=== PATIENT | female | born 1990 | race American Indian/Alaskan Native ===

== ENCOUNTER 2017-02-25 03:28 | Inpatient (IN) | payer OTHER ==
[2017-02-25] MEDS ORDERED: LACTATED RINGERS 500 ML IV ONE (04:19)
[2017-02-25 05:24] LABS: Bacteria,Urine 1+ /HPF (Negative); Bilirubin,Urine NEG (Negative); Blood,Urine SM (Negative); Ketones,Urine NEG (Negative); Leukocyte Esterase,Urine LG (Negative); Mucus,Urine FEW /HPF; Nitrite,Urine NEG (Negative); Protein,Urine <15 mg/dL mg/dL (Negative); Urobilinogen,Urine < 2.0 mg/dL (<2.0)
[2017-02-25 06:57] LABS: Urine Drugs of Abuse Note Disclamer
[2017-02-25] MEDS ORDERED: PITOCin/NS 20 UNIT/1000ML DRIP 20 UNITS/1,000 ML BAG IV SCH (07:00)
--- NOTE | 2017-02-25 07:09 | History and Physical Report ---
History of Present Illness Date of examination: 02/25/17 Chief complaint: Cramping x ~ 1 wk Vaginal bleeding History of present illness: 26-year-old at 21+ 4 weeks (SOILA 07/04/16) presents with above complaints and issues, she is a [facility] patient. Essential history is patient with oral diagnosis of gestational diabetes, I suspect she has pre-gestational diabetes presents with cramping since Friday and acute onset of vaginal bleeding today in triage. course has been complicated by diabetes as mentioned being managed by [facility], she is currently on insulin. She has an oral hx of prior SAB at ~ 12 wks, no D&C. Ultrasound obtained today in triage shows an at 21+ 2 weeks and estimated weight of ~ 400 mg. She is in breech presentation with fundal placenta, heart tones present. On exam, parts palpated in the vagina and mild vaginal bleeding noted. 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 denies: smoking, alcohol abuse, prescription drug abuse, IV drug use - Obstetrical History Expected Date of Delivery: 07/04/17 Actual Gestation: 21 Week(s) 4 Day(s) : 2 Para: 0 Medications and Allergies Allergies Allergy/AdvReac Type Severity Reaction Status Date / Time No Known Allergies Allergy Verified 05/30/16 19:21 Home Medications Medication Instructions Recorded Confirmed Last Taken Type Insulin NPH Human Isophane 100 unit SQ QAMDIAB 02/25/17 02/25/17 02/24/17 History [HumuLIN N] Insulin Regular, Human [HumuLIN R] 1,000 unit SQ BIDBRS 02/25/17 02/25/17 History Vit-Fe Fumar-FA [ 1 tab PO QDAY 02/25/17 02/25/17 02/24/17 History Vitamin] Active Meds: Active Medications Ephedrine Sulfate (Ephedrine Sulfate) 10 mg IV Q2M PRN PRN Reason: Hypotension Stop: 02/25/17 07:00 Fentanyl (Sublimaze) 100 mcg IV Q2H PRN PRN Reason: Labor Pain Lactated Ringer's (Lactated Ringers) 1,000 mls @ 125 mls/hr IV DIRECT KYLE Oxytocin/Sodium Chloride (Pitocin/Ns 20 Unit/1000ml Drip) 20 units in 1,000 mls @ 125 mls/hr IV DIRECT KYLE Oxytocin/Sodium Chloride (Pitocin/Ns 30 Unit/500ml) 30 units in 500 mls @ 1 mls /hr IV TITR KYLE; 1 MILLIUNITS/MIN PRN Reason: Protocol Lidocaine (Xylocaine 2%) 20 ml INFILTRATI ONCE ONE Stop: 02/25/17 06:56 Mineral Oil (Mineral Oil) 30 ml PO QHS PRN PRN Reason: Constipation Ondansetron HCl (Zofran) 4 mg IV Q8H PRN PRN Reason: Nausea And Vomiting Terbutaline Sulfate (Brethine) 0.25 mg SUB-Q ONCE PRN PRN Reason: Hyperstimulation/Hypertonicity Stop: 02/25/17 06:56 Terbutaline Sulfate (Brethine) 0.25 mg IVP ONCE PRN PRN Reason: Hyperstimulation/Hypertonicity Stop: 02/25/17 06:56 Review of Systems Constitutional: no fever, no chills, no sweats, no weakness, no chronic headaches, no chronic pain Eyes: no blurred vision, no photophobia Cardiovascular: no chest pain, no orthopnea, no syncope, no lightheadedness, no shortness of breath, no dyspnea on exertion, no paroxysmal nocturnal dyspnea, no high blood pressure, no decreased exercise tolerance Respiratory: no hemoptysis, no shortness of breath, no dyspnea on exertion Gastrointestinal: abdominal pain, no nausea, no vomiting, no heartburn, no indigestion Genitourinary: vaginal bleeding (mild bleeding), contractions, no vaginal discharge, no leakage of fluid - Vital Signs Vital signs: Vital Signs Temp Resp 98.6 F 18 02/25/17 03:58 02/25/17 03:58 Temp Pulse Resp BP Pulse Ox 98.6 F 96 H 18 132/73 97 02/25/17 03:58 02/25/17 04:13 02/25/17 03:58 02/25/17 04:03 02/25/17 04:13 - Physical Exam Cardiovascular: Regular rate, Normal S1, Normal S2 Lungs: Positive: Clear to auscultation, Normal air movement Abdomen: Positive: normal appearance, soft, normal bowel sounds. Negative: distention, tenderness, guarding, rigidity Genitourinary (Female): Positive: normal external genitalia, other ( parts palpated in the vagina) Uterus: Positive: enlarged. Negative: tender Adnexa: both: normal Extremities: Positive: normal Results Result Diagrams: 02/25/17 06:05 Abnormal lab results 02/25/17 Range/Units 04:00 Urine WBC (Auto) 16.0 H (0.0-6.0) /HPF All other labs normal. Assessment and Plan A: 26-year-old at 21+4 weeks with labor - heart tones present Issues -Pregestational DM on Insulin ([id number]) -POC is ~ 94 (this AM) - < 500 g -Breech and fundal placenta P: -Admit -Obtain routine labs -NPO now -Hold her scheduled insulin for now and Start SSI -Expectant mgt - Patient Problems (1) 21 weeks gestation of Current Visit: Yes Status: Acute (2) labor in second trimester Current Visit: Yes Status: Acute Qualifiers: labor delivery status: P Fetus number: single or unspecified fetus
[2017-02-25 07:11] LABS: Hematocrit 37.9 % (30.3-42.9); Hemoglobin 12.8 gm/dl (10.1-14.3); Mean Corpuscular HGB Conc 34 % (30-34); Mean Corpuscular Hemoglobin 28 pg (28-32); Mean Corpuscular Volume 81 fl (79-97); Platelet Count 284 K/mm3 (140-440); Red Blood Count 4.66 M/mm3 (3.65-5.03); Red Cell Distribution Width 14.2 % (13.2-15.2); White Blood Count 15.2 K/mm3 (4.5-11.0)
[2017-02-25] MEDS ORDERED: D50W (25GM) Syringe IV PRN (08:00)
[2017-02-25] MEDS ORDERED: MINERAL OIL PO PRN (08:00)
[2017-02-25] MEDS ORDERED: BRETHINE SUB-Q PRN (08:00)
[2017-02-25] MEDS ORDERED: LACTATED RINGERS 1,000 ML IV SCH (08:00)
[2017-02-25] MEDS ORDERED: ZOFRAN IV PRN ×2 (08:00→15:53)
[2017-02-25] MEDS ORDERED: ePHEDrine SULFATE IV PRN (08:00)
--- NOTE | 2017-02-25 08:07 | Ultrasound Report ---
OB ULTRASOUND History: Vaginal bleeding during . Comparison: None at this facility. Technique: Transabdominal ultrasound with Doppler interrogation. Gestation: Single Position: Breech Amniotic Fluid: Decreased TONI = 1.2 cm Placenta: Fundal Placental Grade: 0 Heart Rate: 210 BPM Cervical length: The cervix appears to be open with parts presenting. cm (Normal > 3 cm) BPD: 5.0 cm = 21 w 0 d HC: 18.6 cm = 20 w 6 d AC: 15.6 cm = 20 w 5 d FL: 3.7 cm = 21 w 5 d HC/AC Ratio: 1.19 Cephalic Index: 80.1 Estimated Weight: 402 grams. 24th percentile. LMP: 09/27/16 Clinical age = 21 w 4 d EDC: 07/04/17 US Gest. Age = 21 w 1 d EDC: 07/07/17
[2017-02-25] MEDS ORDERED: XYLOCAINE 2% INFILTRATI ONE (08:30)
[2017-02-25] MEDS ORDERED: BRETHINE IVP PRN (09:00)
--- NOTE | 2017-02-25 09:16 | Event Note ---
Date: 02/25/17 S: Presented to Labor and delivery this am with cramping, started bleeding in Triage O: parts in vagina on exam A: labor at 21 weeks P: Discussed expectant management vs intervention with pitocin for delivery Agrees to pitocin augmentation
[2017-02-25] MEDS: PITOCin/NS 30 UNIT/500ML 30 UNITS/500 ML BAG IV SCH ×4 (10:21→12:12)
[2017-02-25] MEDS: SUBLIMAZE IV PRN ×2 (11:03→14:15)
[2017-02-25] MEDS ORDERED: METHERGINE IM ONE (13:06)
[2017-02-25] MEDS ORDERED: CYTOTEC ONE (13:06)
[2017-02-25] MEDS ORDERED: PHENERGAN PO PRN ×2 (13:57→15:53)
[2017-02-25] MEDS ORDERED: TYLENOL PO PRN ×2 (13:57→15:53)
[2017-02-25] MEDS ORDERED: MOTRIN PO SCH (14:00)
[2017-02-25] MEDS ORDERED: SODIUM CHLORIDE FLUSH SYRINGE 10 ML IV NR ×2 (14:00→16:00)
[2017-02-25] MEDS ORDERED: ANCEF/STERILE WATER 2 GM/20 ML 2 GM/20 ML SYRINGE IV SCH (14:00)
--- NOTE | 2017-02-25 14:03 | Procedure Note ---
OB Delivery Note - Delivery Date of Delivery: 02/25/17 Surgeon: SARA GUTIERREZ Estimated blood loss: 300cc - Vaginal Delivery presentation: breech Intrapartum events: labor-<37 weeks, other(please specify) ( oligohydramnious) Delivery augmentation: pitocin Delivery monitor: none Route of delivery: Delivery placenta: adherent Delivery cord: 3 umbilical vessels Episiotomy: none Delivery laceration: none Anesthesia: intravenous Delivery comments: of a non viable female (418 gms) @ 1308 on 02/25/17, 2 at 2 and 5 min. Baby given to mom to hold. FHR ceased at 1340. Placenta adherent and patient prepared for D and C. Dr. Coronel aware. - Infant A at 1 minute: 2 ( at 1340) at 5 minutes: 2 Gender: Female ( at)
[2017-02-25] MEDS ORDERED: ceFAZolin 2 GM in NACL 0.9% 100 ML IV ONE (14:38)
[2017-02-25] MEDS ORDERED: XYLOCAINE MPF 2% ONE (14:39)
[2017-02-25] MEDS ORDERED: DILAUDID ONE (14:39)
[2017-02-25] MEDS ORDERED: DIPRIVAN 10 MG/ML IV ONE (14:39)
[2017-02-25] MEDS ORDERED: ANCEF/STERILE WATER 2 GM/20 ML 2 GM/20 ML SYRINGE IV ONE (14:46)
[2017-02-25] MEDS ORDERED: WATER FOR IRRIG STERILE IR ONE (14:55)
[2017-02-25] MEDS ORDERED: ZOFRAN ONE (15:37)
[2017-02-25] MEDS ORDERED: PERCOCET 5/325 PO PRN (15:53)
[2017-02-25 17:51] LABS: Hematocrit 30.5 % (30.3-42.9); Hemoglobin 9.9 gm/dl (10.1-14.3)
[2017-02-25] MEDS: MOTRIN PO SCH (21:59)
--- NOTE | 2017-02-25 22:51 | Operative Report ---
PREOPERATIVE DIAGNOSES: 1. Status post vaginal delivery of nonviable fetus. 2. Retained products of conception. POSTOPERATIVE DIAGNOSES: 1. Status post vaginal delivery of nonviable fetus. 2. Retained products of conception. PROCEDURE: Suction, dilatation and curettage. SURGEON: Dr. Coronel. WEATHERIZATION TECHNICIAN: None. ANESTHESIA: General. COMPLICATIONS: None. ESTIMATED BLOOD LOSS: 200 mL intraoperatively. IV fluids, Ringer's lactate 1 liter. Urine output adequate by straight catheter before the procedure. DESCRIPTION OF PROCEDURE: The risks, benefits and alternatives of the procedure were discussed in detail with the patient, which included but not limited to the risk of infection, hemorrhage requiring blood transfusion, uterine perforation. The patient expressed understanding. Her questions were answered and she gave the informed consent. The patient was taken to the operating room with an IV fluid infusing Ringer's Lactate. In the operating room, she was placed in the dorsal supine position and given general anesthesia. Then, she was placed on the stirrups in a dorsal lithotomy position. The perineum, vagina, and cervix were washed and she was prepared and draped in the usual sterile fashion. Examination under anesthesia revealed dilated cervix with some products of conception at the os. The uterus was about 18-20 weeks size. Adnexa are nonpalpable. A weighted speculum was placed on the posterior vaginal wall. The anterior lip of the cervix was grasped with a single tooth tenaculum. Sponge forceps was used to grasp the parts of the products of conceptions that were sitting at the cervix and a 14 mm suction curette was connected to the suction device and it was gently introduced into the uterine cavity up to the fundus under ultrasound guidance and a large amount of products of conceptions were suctioned out. Then a sharp curettage was performed and the large piece of the placenta was removed and under ultrasound guidance, the procedure was completed and the endometrial lining became very thin and there was no further bleeding at the end of the procedure. The uterus was firm. Methergine IM was given. The counts of laps, needles, sponges, and instruments were correct x 2. The patient tolerated the procedure well. She was awakened from the anesthesia and taken to the recovery room in stable condition. JOB# [id number] KV/NTS
[2017-02-26 00:52] LABS: Hematocrit 27.2 % (30.3-42.9)
[2017-02-26] MEDS: MOTRIN PO SCH (06:05)
--- NOTE | 2017-02-26 09:04 | Discharge Summary ---
Providers - Providers Date of Admission: 02/25/17 03:29 S/P vaginal delivery of nonviable fetus at 21 weeks. Retained placenta, S/P D&C. Date of discharge: 02/26/17 Attending physician: MARICARMEN MEJIA MD This patient is a 26 year old who presented to L&D on feb 25 with labor and rupture of membranes. Counseling was provided that the fetus was nonviable and she was admitted for expectant management. She delivered via a nonviable baby. The placenta was retained and she was bleeding heavily. She had lost about 600 cc of blood in the subsequent 30 minutes after delivery. The decision to perform a D&C was made. She gave her informed consent and was taken to the OR. D&C was done and the placenta was removed with suction and curette. H&H was 9.0/27.2 two hours after the procedure. She was observed overnight. This AM, she denies any complaint. Vitals: T98.9F, HR 94, RR18, BP 101/56. Exam: unremarkable. Pelvic exam: deferred. A: 26 year old S/P of a nonviable baby after PROM. Retained placenta, S/P suction D&C. POD#1. She is hemodynamically stable. Plan: will d/c home today. Pt to F/U in the office in 2 weeks. Primary care physician: GHAZALA AMOR MD Hospitalization Disposition: DC-30 STILL A PATIENT Plan - Provider Discharge Summary Additional instructions: [] Smoking cessation referral if applicable(refer to patient education folder for contact #) [] Refer to [facility] Booklet Call your doctor immediately for: * Fever > 100.5 * Heavy vaginal bleeding ( >1 pad per hour) * Severe persistent headache * Shortness of breath * Reddened, hot, painful area to leg or breast * Drainage or odor from incision. * Keep incision clean and dry at all times and follow doctor's instructions regarding bathing/showering - Follow up plan Follow up: GHAZALA MAKI MD [Primary Care Provider] - 7 Days
[2017-02-26 09:36] VITALS: BP 99/47
[2017-02-26] MEDS ORDERED: Fluarix Quad 2017-2018(36 MOS+) IM ONE (12:00)
== END 2017-02-26 12:10 | disposition home or self-care (01) | DRG 767 ==
LOC: TRG 03:28 → LD 03:29 → TRG 03:30 → OB 18:07
PROVIDERS: ADMIT Obstetrics & Gynecology; ATTEND Obstetrics & Gynecology
PROC: 10D17ZZ Extraction of Products of Conception, Retained, Via Natural or Artificial Opening (ICD-10-PCS; principal; 2017-02-25)
PROC: 10E0XZZ Delivery of Products of Conception, External Approach (ICD-10-PCS; 2017-02-25)
PROC: 3E0234Z Introduction of Serum, Toxoid and Vaccine into Muscle, Percutaneous Approach (ICD-10-PCS; 2017-02-26)
DX: O60.12X0 Preterm labor second trimester with preterm delivery second trimester, not applicable or unspecified (principal); O41.02X0 Oligohydramnios, second trimester, not applicable or unspecified; Z37.1 Single stillbirth; O32.1XX0 Maternal care for breech presentation, not applicable or unspecified; O24.414 Gestational diabetes mellitus in pregnancy, insulin controlled; O76 Abnormality in fetal heart rate and rhythm complicating labor and delivery; O43.892 Other placental disorders, second trimester; Z3A.21 21 weeks gestation of pregnancy; Z23 Encounter for immunization; Z79.4 Long term (current) use of insulin
CPT/HCPCS: 36415; 76816; 80307; 81001; 82962; 85014; 85018; 85027; 86850; 86900; 86901; 88305; J0690; J1170; J2210; J2405; J2590; J2704; J3010; J7120

== ENCOUNTER 2019-08-02 07:34 | Outpatient (CLI) | payer BC ==
[2019-08-02 10:56] VITALS: BP 119/70
== END 2019-08-02 12:21 | disposition home or self-care (01) ==
LOC: LAB 07:34 → TRG 10:17 → LAB 12:21
PROVIDERS: ATTEND Obstetrics & Gynecology
DX: O26.893 Other specified pregnancy related conditions, third trimester (principal); O24.419 Gestational diabetes mellitus in pregnancy, unspecified control; Z67.21 Type B blood, Rh negative; Z3A.28 28 weeks gestation of pregnancy
CPT/HCPCS: 86850; 86900; 86901; 96372; J2790

== ENCOUNTER 2019-10-14 08:58 | Inpatient (IN) | payer BC ==
[2019-10-14] MEDS ORDERED: FAMOTIDINE 20 MG/2 ML INJ IV ONE (09:16)
[2019-10-14] MEDS ORDERED: METOCLOPRAMIDE 10 MG/2 ML INJ IV ONE (09:16)
[2019-10-14] MEDS ORDERED: BICITRA ORAL LIQD 30ML PO NR (09:16)
--- NOTE | 2019-10-14 09:38 | History and Physical Report ---
History of Present Illness Date of examination: 10/14/19 Date of admission: 10/14/19 08:58 Chief complaint: IUP at 39+0/7 weeks IDDM Suspect CPD:remote from delivery For elective primary c/section History of present illness: IUP at 39+0/7 weeks, suspected CPD remote from delivery here for elective primary delivery Past History Past Medical History: diabetes Past Surgical History: no surgical history Family/Genetic History: none Social history: no significant social history - Obstetrical History : 3 Medications and Allergies Allergies Allergy/AdvReac Type Severity Reaction Status Date / Time No Known Allergies Allergy Verified 05/30/16 19:21 Home Medications Medication Instructions Recorded Confirmed Last Taken Type Insulin NPH Human Isophane 100 unit SQ QAMDIAB 02/25/17 02/25/17 02/24/17 History [HumuLIN N] Insulin Regular, Human [HumuLIN R] 1,000 unit SQ BIDBRS 02/25/17 02/25/17 History Vit-Fe Fumar-FA [ 1 tab PO QDAY 02/25/17 02/25/17 02/24/17 History Vitamin] Active Meds: Active Medications Citric Acid/Sodium Citrate (Bicitra) 30 ml PO ONCE ONE Stop: 10/14/19 09:17 Famotidine (Pepcid) 20 mg IV ONCE ONE Stop: 10/14/19 09:17 Oxytocin/Sodium Chloride (Pitocin/Ns 20 Unit/1000ml Drip) 20 units in 1,000 mls @ 0 mls/hr IV TITR KYLE Lactated Ringer's (Lactated Ringers) 1,000 mls @ 2,250 mls/hr IV PREOP KYLE Stop: 10/15/19 10:27 Cefazolin Sodium (Ancef/Sterile Water 2 Gm/20 Ml) 2 gm in 20 mls @ 80 mls/hr IV PREOP NR; Protocol Metoclopramide HCl (Reglan) 10 mg IV ONCE ONE Stop: 10/14/19 09:17 - Physical Exam Cardiovascular: Regular rate Lungs: Positive: Clear to auscultation ( ) Abdomen: Positive: normal appearance, soft Extremities: Positive: normal Deep Tendon Reflex Grade: Normal +2 - Obstetrical FHR: category 1 Cervical Dilatation: 0 (prominent pelvic outlet/ischial spines<10cm) Cervical Effacement Percentage: 50 station: -4 Results Result Diagrams: 10/14/19 09:41 All other labs normal. Assessment and Plan Patient with IDDM, 39+0/7 weeks remote from delivery, suspect CPD Patient has elected to have a primary section informed consent obtained NPO to OR for procedure CStevo Balir MD
[2019-10-14] MEDS ORDERED: ceFAZolin/Water 2 GM/20 ML 2 GM/20 ML SYRINGE IV NR (10:00)
[2019-10-14] MEDS ORDERED: OXYTOCIN 20 UNIT/1000ML DRIP 20 UNITS/1,000 ML BAG IV SCH ×2 (10:00→14:00)
[2019-10-14 10:16] LABS: Basophils % (Auto) 0.3 % (0.0-1.8); Eosinophils # (Auto) 0.1 K/mm3 (0.0-0.4); Eosinophils % (Auto) 1.5 % (0.0-4.3); Hematocrit 39.6 % (30.3-42.9); Hemoglobin 13.2 gm/dl (10.1-14.3); Lymphocytes # (Auto) 1.3 K/mm3 (1.2-5.4); Mean Corpuscular HGB Conc 33 % (30-34); Mean Corpuscular Volume 84 fl (79-97); Monocytes # (Auto) 0.4 K/mm3 (0.0-0.8); Monocytes % (Auto) 7.1 % (0.0-7.3); Platelet Count 260 K/mm3 (140-440); Red Blood Count 4.71 M/mm3 (3.65-5.03); Red Cell Distribution Width 15.1 % (13.2-15.2)
[2019-10-14] MEDS: LACTATED RINGERS 1,000 ML IV SCH ×3 (10:21→18:02)
--- NOTE | 2019-10-14 11:43 | Anesthesia Consultation ---
Anesthesia Consult and Med Hx Date of service: 10/14/19 - Airway Anesthetic Teeth Evaluation: Good ROM Head & Neck: Adequate Mental/Hyoid Distance: Adequate Mallampati Class: Class II Intubation Access Assessment: Probably Good - Pulmonary Exam CTA: Yes - Cardiac Exam Cardiac Exam: RRR - Pre-Operative Health Status ASA Pre-Surgery Classification: ASA3 Proposed Anesthetic Plan: Spinal - Pulmonary Hx Asthma: No COPD: No Hx Pneumonia: No - Cardiovascular System Hx Hypertension: No - Central Nervous System Hx Seizures: No Hx Psychiatric Problems: No - Endocrine Hx Renal Disease: No Hx End Stage Renal Disease: No Hx Non-Insulin Dependent Diabetes: Yes Hx Hypothyroidism: No Hx Hyperthyroidism: No - Hematic Hx Anemia: No Hx Sickle Cell Disease: No - Other Systems Hx Alcohol Use: No Hx Obesity: Yes
--- NOTE | 2019-10-14 11:44 | Anesthesia Day of Surgery ---
Anesthesia Day of Surgery - Day of Surgery Patient Examined: Yes Patient H&P Reviewed: Yes Patient is NPO: Yes
[2019-10-14] MEDS ORDERED: SODIUM CHLORIDE 0.9% IRR 1,500 ML BOTTLE IR ONE (12:16)
[2019-10-14] MEDS ORDERED: WATER FOR IRRIG STERILE 1,500 ML BOTTLE IR ONE (12:16)
[2019-10-14] MEDS ORDERED: DEXMEDETOMIDINE 200 MCG/2 ML VIAL IV ONE (12:21)
[2019-10-14] MEDS ORDERED: SODIUM CHLORIDE 0.9% 100 ML ONE (12:21)
[2019-10-14] MEDS ORDERED: KETOROLAC 30 MG/1 ML INJ ONE (12:21)
[2019-10-14] MEDS ORDERED: LIDOCAINE 2%/EPINEPHRINE 1:200,000 VIAL (20 ML) INFILTRATI ONE (12:21)
[2019-10-14] MEDS ORDERED: dexAMETHasone 20 MG/5 ML VIAL ONE (12:21)
[2019-10-14] MEDS ORDERED: SODIUM BICARB 8.4% 50 MEQ/50 ML VIAL IV ONE (12:21)
[2019-10-14] MEDS ORDERED: BUPIVACAINE/PF (0.5%) 5 MG/1 ML 30 ML VIAL INFILTRATI ONE (12:21)
[2019-10-14] MEDS ORDERED: OXYTOCIN 10 UNIT/1 ML INJ ONE (12:21)
--- NOTE | 2019-10-14 13:13 | Procedure Note ---
OB Delivery Note - Delivery Date of Delivery: 10/14/19 Surgeon: TONYA BETHEA Estimated blood loss: other (900ml) - Section Preop diagnosis: other (IUP at 39+0/7 weeks, cephaloplvic disproportion, IDDM) Postop diagnosis: same section procedure: primary low transverse Disposition: PACU Complications: none Narrative: Preoperative diagnosis: IUP at 39+0/7 week, suspected cephalopelvic disproportion, IDDM remote from delivery Postoperative diagnosis: same Procedure: primary low transverse section via pfannenstiel incision Surgeon : Dr Tonya Bethea Assist: scrub Anesthesia: spinal Complications: none Drains: samayoa to gravity EBL 900ml IV fluids: 500ml Urine output: 200ml Findings:normal uterus, tubes and ovaries bilaterally. Viable male,weight 3800gms, 8,9. Procedure: informed consent taken in OB triage with family present. All questions and concerns addressed. R/B/C reviewed. She was taken to the OR where excellent spinal anesthesia was given. She was placed in the dorsal supine position with a leftward tilt. She was prepped and draped in a sterile fashion. A time out was verified. An Cait clamp was used to assure adequate anesthesia. A Pfannenstiel skin incision was made, taken down through the underlying fascia sharply and extended laterally with curved Sal scissors. The superior and inferior aspect of the fascial incision was grasped with Stacy clamps and the rectus muscles dissected off sharply. The abdomen was entered sharply in the midline and extended laterally and inferiorly sharply with good visualization of the underlying structures. The vesicouterine peritoneum was grasped with [place]ican forceps and incised sharply with Metzenbaum scissors and extended laterally sharply. The uterine incision was made sharply with a scalpel, taken down to the amnion and extended inferiorly and superiorly bluntly. The bladder blade removed. Baby delivered atraumatically in cephalic presentation, no nuchal cord. Spontaneous cry at delivery.The cord was clamped and cut and baby handed to waiting NICU staff. An intact placenta with three vessel cord delivered manually. The uterus cleared of all clots and debris. The uterus was exteriorized and the uterine incision closed with 3 layers of 0-Vicryl. The abdomen was irrigated with warm normal saline and the uterus placed back in the abdomen. A second look at the uterine incision assured excellent hemostasis. The peritoneum closed with 3-0 vicryl. The rectus muscles approximated with 3- 0 vicryl with good hemostasis. The fascia closed with 0-Vicryl in the usual fashion, and the underlying structures closed with interrupted suture of O- Vicryl. The skin closed with monocryl and a pressure dressing applied. Mom and baby stable to . Patient hemodynamically stable in PACU. EBL 900ml Agapito LLOYD - A at 1 minute: 8 at 5 minutes: 9
[2019-10-14] MEDS ORDERED: ONDANSETRON 4 MG/2 ML INJ IV PRN (13:26)
[2019-10-14] MEDS ORDERED: LANOLIN/ZINC/DIMETHICONE (LANSINOH) 7 GM TP PRN (13:30)
[2019-10-14] MEDS ORDERED: WITCH HAZEL/ GLYCERIN PAD TP PRN (13:30)
[2019-10-14] MEDS ORDERED: NALOXONE 0.4 MG/1 ML INJ IV PRN (13:30)
[2019-10-14] MEDS ORDERED: MORPHINE 4 MG/1 ML INJ IV PRN (14:00)
[2019-10-14] MEDS ORDERED: MORPHINE 2 MG/1 ML INJ IV PRN (14:00)
--- NOTE | 2019-10-14 17:49 | Event Note ---
Date: 10/14/19 Patient with IDDM. I have decreased her daily insulin and metformin dose by 50% as is the standard of care for PP IDDM. She is to be discharge to home with the following insulin; NPH 13units QHS, Metformin 500mg BID. Mercedes Blair MD
[2019-10-14] MEDS: IBUPROFEN 800 MG TAB PO PRN (21:01)
[2019-10-14] MEDS ORDERED: DEXTROSE 50% IN WATER (25GM) 50 ML SYRINGE IV PRN (21:48)
[2019-10-14] MEDS: INSULIN REGULAR, HUMAN 100 UNITS/1 ML SUB-Q SCH (22:00)
[2019-10-14] MEDS ORDERED: MAGNESIUM HYDROXIDE (MOM) ORAL LIQD UDC PO PRN (22:00)
[2019-10-14] MEDS: INSULIN NPH, HUMAN 100 UNIT/1 ML SUB-Q SCH (22:45)
[2019-10-15 01:27] LABS: Hematocrit 36.6 % (30.3-42.9); Hemoglobin 12.3 gm/dl (10.1-14.3)
[2019-10-15] MEDS: IBUPROFEN 800 MG TAB PO PRN ×2 (09:04→21:10)
[2019-10-15] MEDS: metFORMIN 500 MG TAB PO SCH ×2 (09:05→18:22)
--- NOTE | 2019-10-15 15:29 | Progress Note ---
Assessment and Plan - Patient Problems (1) S/P primary low transverse Current Visit: Yes Status: Acute Plan to address problem: POD 1 - stable Continue routine postop orders Ambulation encouraged, as tolerated Abdominal binder ordered Anticipate discharge in 24 to 48 hours (2) Single live Current Visit: Yes Status: Acute (3) Insulin dependent diabetes mellitus Current Visit: Yes Status: Acute Plan to address problem: Last BG 94 On sliding scale insulin Regular diet discontinued and GDM diet ordered (4) Rh negative status during Current Visit: Yes Status: Acute Qualifiers: Trimester: third trimester Qualified Code(s): O26.893 - Other specified related conditions, third trimester; Z67.91 - Unspecified blood type, Rh negative Plan to address problem: Rhogam workup ordered Subjective - Subjective Date of service: 10/15/19 Principal diagnosis: POD #1; s/p Primary LTCS; IDDM Interval history: see [employer] H&P and OB Delivery Procedure Note Patient reports: appetite normal, voiding normally, pain well controlled, flatus, bowel movement, ambulating normally, no dizzy ambulation [place]shaw: doing well Objective - Vital Signs Latest vital signs: Vital Signs Temp Pulse Resp BP BP Pulse Ox 10/15/19 07:56 98.4 F 82 18 117/72 96 10/15/19 05:14 98.0 F 77 18 116/69 10/14/19 23:40 98.2 F 76 20 117/74 94 10/14/19 20:40 98.1 F 78 20 126/74 97 Intake and Output 10/14/19 10/15/19 10/15/19 23:59 07:59 15:59 Intake Total 1360 Output Total 2900 700 Balance -1540 -700 Intake: IV 1000 Lactated Ringers 1,000 ml 1000 @ 1000 mls/hr IV PREOP KYLE Rx#:[id number] Oral 360 Output: Urine 2900 700 Indwelling 700 Indwelling Catheter 2200 Void 700 Other: Total, Intake Amount 240 Total, Output Amount 700 700 # Voids Void 1 350 # Bowel Movements 1 - Exam Cardiovascular: Present: Regular rate Lungs: Present: Clear to auscultation Abdomen: Present: normal appearance, soft Vulva: both: normal Uterus: Present: normal, firm, fundal height at umbilicus Extremities: Present: normal Incision: Present: normal, dry, intact, dressed Comments: scant lochia - Labs Labs: Abnormal lab results 10/14/19 Range/Units 21:35 POC Glucose 129 H (70-105)
[2019-10-15] MEDS: INSULIN REGULAR, HUMAN 100 UNITS/1 ML SUB-Q SCH ×3 (15:46→22:38)
[2019-10-15] MEDS: oxyCODONE /ACETAMINOPHEN 5-325MG TAB PO PRN (16:45)
[2019-10-15] MEDS: INSULIN NPH, HUMAN 100 UNIT/1 ML SUB-Q SCH (22:37)
[2019-10-16] MEDS: INSULIN REGULAR, HUMAN 100 UNITS/1 ML SUB-Q SCH ×4 (08:00→22:44)
[2019-10-16] MEDS: metFORMIN 500 MG TAB PO SCH ×2 (08:01→19:38)
[2019-10-16] MEDS: oxyCODONE /ACETAMINOPHEN 5-325MG TAB PO PRN (11:00)
[2019-10-16] MEDS: IBUPROFEN 800 MG TAB PO PRN (12:27)
--- NOTE | 2019-10-16 18:33 | Progress Note ---
Assessment and Plan A: /postop day 2 S/P elective primary low transverse section. P: Discharge patient home. Discussed with patient /postop discharge instructions and warning signs. Discussed with patient care of incision and activity restrictions. Advised pt. to avoid intercourse, lifting and housework, stair climbing, driving, and tub baths (pt. may take showers). Advised pt. to continue taking her vitamins and iron supplements at home. Advised pt. to follow up at [facility] office in 1 week for incision check. Patient voiced understanding of all instructions. Subjective - Subjective Date of service: 10/16/19 Principal diagnosis: POD #2; s/p Primary LTCS; IDDM Interval history: /postop day 2 S/P primary elective low transverse section. Doing well. Patient desires discharge home today. Patient reports: appetite normal, voiding normally, pain well controlled, flatus, no dizzy ambulation, no nauseated : doing well Objective - Vital Signs Latest vital signs: Vital Signs Temp Pulse Resp BP Pulse Ox 10/16/19 16:15 98.3 F 91 H 18 112/70 98 10/16/19 12:40 97.8 F 91 H 18 118/77 98 10/16/19 00:08 98.8 F 92 H 18 129/74 99 Intake and Output 10/16/19 10/16/19 10/16/19 07:59 15:59 23:59 Intake Total 240 Balance 240 Intake: Intake, Free Water 240 Other: # Voids Void 1 - Exam Cardiovascular: Present: Regular rate, Normal S1, Normal S2 Lungs: Present: Clear to auscultation Abdomen: Present: normal appearance, soft, normal bowel sounds. Absent: distention, tenderness, guarding, rigidity Uterus: Present: normal, firm, fundal height below umbilicus. Absent: bogginess, tenderness Extremities: Present: normal. Absent: tenderness, edema Incision: Present: normal, dry, intact - Labs Labs: Abnormal lab results 10/15/19 Range/Units 22:45 POC Glucose 117 H (70-105)
--- NOTE | 2019-10-16 18:36 | Discharge Summary ---
Providers - Providers Date of Admission: 10/14/19 08:58 Date of discharge: 10/16/19 Attending physician: TONYA BETHEA MD Primary care physician: TONYA BETHEA MD Hospitalization Reason for admission: section Delivery: Procedure: primary low transverse Incision: normal, dry, intact Other procedures: none complications: none Discharge diagnosis: IUP at term delivered baby: male Pertinent studies: Labs Hospital course: Normal hospital course. Condition at discharge: Good Disposition: DC-01 TO HOME OR SELFCARE Plan - Discharge Medications Prescriptions: Ibuprofen [Motrin] 600 mg PO Q8H PRN #30 tablet PRN Reason: Pain oxyCODONE /ACETAMINOPHEN [Percocet 5/325] 1 tab PO Q6HR PRN #20 tablet PRN Reason: Pain - Provider Discharge Summary Activity: routine, no sex for 6 weeks, no heavy lifting 4 weeks, no strenuous exercise Diet: routine Instructions: routine Additional instructions: Continue taking your vitamin and iron supplements at home. Call your doctor immediately for: * Fever > 100.5 * Heavy vaginal bleeding ( >1 pad per hour) * Severe persistent headache * Shortness of breath * Reddened, hot, painful area to leg or breast * Drainage or odor from incision. * Keep incision clean and dry at all times and follow doctor's instructions regarding bathing/showering - Follow up plan Follow up: TONYA BETHEA MD [Primary Care Provider] - 7 Days
[2019-10-16] MEDS: INSULIN NPH, HUMAN 100 UNIT/1 ML SUB-Q SCH (22:44)
--- NOTE | 2019-10-17 12:08 | Event Note ---
Date: 10/17/19 Patient was discharged home yesterday but stayed overnight due to baby. Order put in again this morning as nurse baby is discharged.
[2019-10-19 11:40] VITALS: BP 118/75
== END 2019-10-17 13:50 | disposition home or self-care (01) | DRG 787 ==
LOC: APU 08:58 → OB 15:36
PROVIDERS: ADMIT Obstetrics & Gynecology; ATTEND Obstetrics & Gynecology
PROC: 10D00Z1 Extraction of Products of Conception, Low, Open Approach (ICD-10-PCS; principal; 2019-10-14)
DX: O33.9 Maternal care for disproportion, unspecified (principal); O24.113 Pre-existing type 2 diabetes mellitus, in pregnancy, third trimester; Z3A.39 39 weeks gestation of pregnancy; Z37.0 Single live birth; E11.9 Type 2 diabetes mellitus without complications; Z79.899 Other long term (current) drug therapy; Z79.84 Long term (current) use of oral hypoglycemic drugs
CPT/HCPCS: 36415; 82962; 85014; 85018; 85025; 85461; 86850; 86900; 86901; G0378; J0690; J1100; J1815; J1885; J2590; J2765; J2790; J3490; J7120

== ENCOUNTER 2021-06-11 14:46 | Outpatient (CLI) | payer BC | END 2021-06-11 18:00 | disposition home or self-care (01) | LOC: TRG 14:46 → LAB 14:46 → APU 17:58 → LAB 17:58 → TRG 18:00 | PROVIDERS: ATTEND Obstetrics & Gynecology | DX: O26.893 Other specified pregnancy related conditions, third trimester (principal); O24.419 Gestational diabetes mellitus in pregnancy, unspecified control; Z3A.34 34 weeks gestation of pregnancy; Z67.21 Type B blood, Rh negative | CPT/HCPCS: 86850; 86900; 86901; 96372; J2790 ==

== ENCOUNTER 2021-07-13 12:54 | Outpatient (CLI) | payer BC ==
[2021-07-13 13:24] VITALS: BP 126/77
== END 2021-07-13 17:24 | disposition home or self-care (01) ==
LOC: APU 12:54 → TRG 12:54
PROVIDERS: ATTEND Obstetrics & Gynecology
DX: Z34.93 Encounter for supervision of normal pregnancy, unspecified, third trimester (principal); Z3A.38 38 weeks gestation of pregnancy
CPT/HCPCS: 59025; 82962

== ENCOUNTER 2021-07-14 09:04 | Inpatient (IN) | payer BC ==
[2021-07-14] MEDS: LACTATED RINGERS 1,000 ML IV SCH ×2 (09:55→10:41)
[2021-07-14 09:58] LABS: Basophils % (Auto) 0.5 % (0.0-1.8); Eosinophils % (Auto) 0.4 % (0.0-4.3); Hematocrit 36.9 % (30.3-42.9); Lymphocytes # (Auto) 1.3 K/mm3 (1.2-5.4); Lymphocytes % (Auto) 21.8 % (13.4-35.0); Mean Corpuscular HGB Conc 32 % (30-34); Mean Corpuscular Volume 81 fl (79-97); Monocytes # (Auto) 0.4 K/mm3 (0.0-0.8); Monocytes % (Auto) 6.1 % (0.0-7.3); Platelet Count 263 K/mm3 (140-440); Red Blood Count 4.58 M/mm3 (3.65-5.03); Red Cell Distribution Width 15.2 % (13.2-15.2)
[2021-07-14] MEDS ORDERED: OXYTOCIN DRIP 30 UNITS/500 ML BAG IV SCH (10:00)
[2021-07-14] MEDS ORDERED: ceFAZolin/Water 2 GM/20 ML 2 GM/20 ML SYRINGE IV NR (10:00)
--- NOTE | 2021-07-14 10:18 | History and Physical Report ---
History of Present Illness Date of examination: 07/14/21 Date of admission: 07/14/21 09:04 Chief complaint: Elective repeat section Multiparity desiring surgical sterilization Past History Past Medical History: other (GDM) Past Surgical History: section Family/Genetic History: none Social history: no significant social history - Obstetrical History Expected Date of Delivery: 07/22/21 Actual Gestation: 38 Week(s) 6 Day(s) : 4 Para: 1 Medications and Allergies Allergies Allergy/AdvReac Type Severity Reaction Status Date / Time No Known Allergies Allergy Verified 07/14/21 09:20 Home Medications Medication Instructions Recorded Confirmed Last Taken Type Insulin NPH Human Isophane 100 unit SQ QAMDIAB 02/25/17 02/25/17 02/24/17 History [HumuLIN N] Insulin Regular, Human [HumuLIN R] 1,000 unit SQ BIDBRS 02/25/17 02/25/17 02/24/17 History Vit-Fe Fumar-FA [ 1 tab PO QDAY 02/25/17 02/25/17 02/24/17 History Vitamin] Ibuprofen [Motrin] 600 mg PO Q8H PRN #30 tablet 10/14/19 Unknown Rx oxyCODONE /ACETAMINOPHEN [Percocet 1 tab PO Q6HR PRN #20 tablet 10/14/19 Unknown Rx 5/325] Active Meds: Active Medications Citric Acid/Sodium Citrate (Bicitra Oral Liqd 30ml) 30 ml PO ONCE ONE Stop: 07/14/21 10:31 Famotidine (Famotidine 20 Mg/2 Ml Inj) 20 mg IV ONCE ONE Stop: 07/14/21 10:31 Lactated Ringer's (Lactated Ringers) 1,000 mls @ 2,250 mls/hr IV PREOP KYLE Stop: 07/15/21 10:57 Last Admin: 07/14/21 09:55 Dose: 2,250 mls/hr Oxytocin/Sodium Chloride (Pitocin/Ns 30 Unit/500ml) 30 units in 500 mls @ 0 mls/hr IV TITR KYLE; Protocol Cefazolin Sodium (Ancef/Sterile Water 2 Gm/20 Ml) 2 gm in 20 mls @ 80 mls/hr IV PREOP NR; Protocol Stop: 07/15/21 23:59 Metoclopramide HCl (Metoclopramide 10 Mg/2 Ml Inj) 10 mg IV ONCE ONE Stop: 07/14/21 10:31 - Vital Signs Vital signs: Vital Signs Pulse Pulse Ox 87 99 07/14/21 09:31 07/14/21 09:31 Temp Pulse Resp BP Pulse Ox 98.4 F 81 16 131/82 99 07/14/21 09:38 07/14/21 10:14 07/14/21 09:38 07/14/21 09:38 07/14/21 10:14 - Physical Exam Cardiovascular: Regular rate Lungs: Positive: Clear to auscultation Abdomen: Positive: normal appearance, soft, normal bowel sounds Genitourinary (Female): Positive: normal external genitalia, normal perenium Vulva: both: normal Vagina: Positive: normal moisture Uterus: Positive: enlarged Anus/Rectum: Positive: normal perianal skin Extremities: Positive: normal Deep Tendon Reflex Grade: Normal +2 - Obstetrical FHR: category 1 Results Result Diagrams: 07/14/21 09:45 Abnormal lab results 07/14/21 Range/Units 09:45 MCH 26 L (28-32) pg Seg Neutrophils % 71.2 H (40.0-70.0) % All other labs normal. Assessment and Plan N.p.o. on-call to the OR for procedure Patient was counseled about risks benefits and possible complications of the procedure. All alternatives were reviewed. Plan intraoperative and postoperative course discussed in detail. Pictures were used for visualization and education purposes. All questions and concerns were reviewed and then informed consent was obtained. See Johnnie LLOYD
[2021-07-14] MEDS ORDERED: METOCLOPRAMIDE 10 MG/2 ML INJ IV ONE (10:30)
[2021-07-14] MEDS ORDERED: FAMOTIDINE 20 MG/2 ML INJ IV ONE (10:30)
[2021-07-14] MEDS ORDERED: BICITRA ORAL LIQD 30ML PO ONE (10:30)
--- NOTE | 2021-07-14 10:34 | Anesthesia Consultation ---
Anesthesia Consult and Med Hx Date of service: 07/14/21 - Airway Anesthetic Teeth Evaluation: Good ROM Head & Neck: Adequate Mental/Hyoid Distance: Adequate Mallampati Class: Class II Intubation Access Assessment: Probably Good - Pulmonary Exam CTA: Yes - Cardiac Exam Cardiac Exam: RRR - Pre-Operative Health Status ASA Pre-Surgery Classification: ASA3 Proposed Anesthetic Plan: Spinal - Pulmonary Hx Asthma: No COPD: No Hx Pneumonia: No - Cardiovascular System Hx Hypertension: No - Central Nervous System Hx Seizures: No Hx Psychiatric Problems: No - Endocrine Hx Renal Disease: No Hx End Stage Renal Disease: No Hx Non-Insulin Dependent Diabetes: Yes Hx Hypothyroidism: No Hx Hyperthyroidism: No - Hematic Hx Anemia: No Hx Sickle Cell Disease: No - Other Systems Hx Alcohol Use: No Hx Obesity: Yes
--- NOTE | 2021-07-14 10:35 | Anesthesia Day of Surgery ---
Anesthesia Day of Surgery - Day of Surgery Patient Examined: Yes Patient H&P Reviewed: Yes Patient is NPO: Yes
[2021-07-14] MEDS ORDERED: ceFAZolin 1 GM VIAL ONE (10:53)
[2021-07-14] MEDS ORDERED: KETOROLAC 30 MG/1 ML INJ ONE (10:53)
[2021-07-14] MEDS ORDERED: BUPIVACAINE/PF (0.5%) 5 MG/1 ML 30 ML VIAL INFILTRATI ONE (10:53)
[2021-07-14] MEDS ORDERED: ONDANSETRON 4 MG/2 ML INJ ONE (10:53)
[2021-07-14] MEDS ORDERED: dexAMETHasone 20 MG/5 ML VIAL ONE (10:53)
[2021-07-14] MEDS ORDERED: miSOPROStol 200 MCG TAB PR PRN (11:00)
[2021-07-14] MEDS ORDERED: ACETAMINOPHEN 325 MG TAB PO PRN (11:00)
[2021-07-14] MEDS ORDERED: CARBOPROST TROMETHAMINE 250 MCG/1 ML INJ IM PRN (11:00)
[2021-07-14] MEDS ORDERED: BUTORPHANOL 2 MG/1 ML INJ IV PRN (11:00)
[2021-07-14] MEDS ORDERED: ePHEDrine SULFATE 50 MG/1 ML INJ IV PRN (11:00)
[2021-07-14] MEDS ORDERED: LIDOCAINE (2%) 20 MG/1 ML VIAL 20 ML MDV INFILTRATI SCH (11:00)
[2021-07-14] MEDS ORDERED: MINERAL OIL 30 ML ORAL LIQD PO PRN (11:00)
[2021-07-14] MEDS ORDERED: fentaNYL 100 MCG/2 ML INJ IV PRN (11:00)
[2021-07-14] MEDS ORDERED: NalbUPHINE 10 MG/1 ML INJ IV PRN (11:00)
[2021-07-14] MEDS ORDERED: LACTATED RINGERS 1,000 ML IV SCH (11:00)
[2021-07-14] MEDS ORDERED: OXYTOCIN 10 UNIT/1 ML INJ IM PRN (11:00)
[2021-07-14] MEDS ORDERED: METHYLERGONOVINE MALEATE 0.2 MG/ML VIAL IM PRN (11:00)
[2021-07-14] MEDS ORDERED: LOPERAMIDE 2 MG CAP PO PRN (11:00)
--- NOTE | 2021-07-14 11:32 | Procedure Note ---
OB Delivery Note - Delivery Date of Delivery: 07/14/21 Surgeon: TONYA BETHEA - Section Preop diagnosis: other ( macrosomia) Postop diagnosis: same section procedure: repeat low transverse Disposition: PACU Complications: none Narrative: Preop diagnosis: IUP at 38.6 weeks,previous sectionx1, GDM with suspected macrosomia( APA recommends delivery), multiparity desiring permanent surgical sterilization Postop diagnosis: Same,delivered Procedure: Repeat low transverse section via Pfannenstiel incision with Mofied Oran Bilateral Tubal ligation Surgeon: Dr. Tonya Bethea Anesthesia spinal Complications none EBL 500ml IV fluids 1 L crystalloid Urine output 100 cc of adequate and clear urine Drains Phillips to gravity Findings: Viable female with weight 3840gms and 8/9, normal uterus tubes and ovaries bilaterally Procedure: Patient was consented in OB triage, taken to the operating room where she received excellent spinal anesthesia. She was then placed in the dorsal supine position with a leftward tilt. The abdomen was prepped and draped in a sterile fashion, and a timeout was verified. Adequate anesthesia was confirmed prior to the skin incision. A Pfannenstiel skin incision was made with a scalpel taken down to the underlying structures and the fascia was incised in the midline. The incision was extended laterally with curved Sal scissors, the superior and inferior aspects of the fascial incisions were grasped with Stacy clamps and the rectus muscles dissected sharply. The abdomen was entered bluntly in the midline carried down inferiorly with good visualization of the bladder. The vesicouterine peritoneum was tented with [place] forceps and incised in the midline with Metzenbaum scissors and the vesicouterine peritoneum taken down sharply. The uterine incision was then made sharply with a scalpel. The inferior and superior aspect of the uterine incisions were extended bluntly, the baby's head was delivered atraumatically. The remainder of the delivery was uncomplicated, no nuchal cord. The cord was clamped and cut and baby handed to waiting NICU team. An intact placenta with three-vessel cord delivered manually. The uterus was then cleared of all clots and debris and the uterus exteriorized. The uterine incision was closed in 2 layers of 0 vicryl with excellent hemostasis. Attention then turned to the fallopian tubes which were suture ligated in the usual fashion with excellent hemostasis. The abdomen was then irrigated with warm normal saline and the uterus placed back into the abdomen atraumatically. A second look at the uterine incision assured hemostasis. The peritoneum was closed with 3-0 Vicryl, the rectus muscles approximated with 3-0 Vicryl, and the fascia closed with 0 Vicryl in the usual fashion. The subcuticular structures were closed with interrupted sutures of 3-0 Vicryl and the skin closed with 4-0 Monocryl. A pressure dressing was applied. All sponge needle and instrument counts were correct x2. There were no complications. Mom and baby stable to PACU. EBL 500 mL Mercedes Bethea MD
[2021-07-14] MEDS ORDERED: KETOROLAC 30 MG/1 ML INJ IV PRN (14:35)
[2021-07-14] MEDS ORDERED: MORPHINE 4 MG/1 ML INJ IV PRN (14:35)
[2021-07-14] MEDS ORDERED: LANOLIN/ZINC/DIMETHICONE (LANSINOH) 7 GM TP PRN (14:35)
[2021-07-14] MEDS ORDERED: WITCH HAZEL/ GLYCERIN PAD TP PRN (14:35)
[2021-07-14] MEDS ORDERED: MORPHINE 2 MG/1 ML INJ IV PRN (14:35)
[2021-07-14] MEDS ORDERED: IBUPROFEN 600 MG TAB PO PRN (14:35)
[2021-07-14] MEDS ORDERED: NALOXONE 0.4 MG/1 ML INJ IV PRN (14:35)
--- NOTE | 2021-07-14 14:52 | Progress Note ---
Spinal Anesthesia Block - Spinal Anesthesia Block Start Time: 13:13 Stop Time: 13:15 Performed by:: PATRICIA BRIONES Procedure: Sitting, sterile Duraprep prep/drape, 1% lidocaine skin local, 24G spinal needle + introducer at L3-4, + CSF, - Heme, [1.9 ml 0.5% bupivacaine + 10 mcg dexmedetomidine] injected, drape removed, patient positioned supine with left uterine displacement, and spinal level verified to be adequate prior to surgery.
[2021-07-15 02:51] LABS: Hematocrit 36.3 % (30.3-42.9); Hemoglobin 11.6 gm/dl (10.1-14.3)
[2021-07-15] MEDS ORDERED: TETANUS,DIPH,PERTUSS(ACELL) VACCINE 0.5 ML SYRINGE IM ONE (06:26)
--- NOTE | 2021-07-15 06:38 | Progress Note ---
Subjective - Subjective Date of service: 07/15/21 Interval history: Postop day #1 Patient doing well Will continue routine postop care Encourage ambulation, advance diet, encourage maternal baby bonding Incision clean dry and intact Fundus firm, lochia mild Maternal status stable Mercedes Blair MD Patient reports: appetite normal, voiding normally, pain well controlled, ambulating normally : doing well Objective - Vital Signs Latest vital signs: Vital Signs Temp Pulse Resp BP BP Pulse Ox Pulse Ox 07/15/21 04:42 98.3 F 79 20 121/73 95 07/15/21 03:25 98 07/15/21 01:41 98 07/15/21 00:03 98.4 F 78 20 112/73 98 07/14/21 23:46 98 07/14/21 22:26 97 07/14/21 21:25 98.3 F 77 20 110/75 99 07/14/21 19:50 98 07/14/21 18:30 98.4 F 70 18 109/74 98 07/14/21 16:30 75 15 127/79 97 07/14/21 16:15 67 16 124/76 99 07/14/21 16:00 68 18 121/77 98 07/14/21 14:55 67 17 125/73 97 07/14/21 14:50 72 16 118/63 96 07/14/21 14:45 98.3 F 80 18 132/92 99 07/14/21 12:44 89 98 07/14/21 12:39 86 98 07/14/21 12:34 86 99 07/14/21 12:33 83 127/66 07/14/21 12:29 92 H 100 07/14/21 12:19 85 99 07/14/21 12:14 80 98 07/14/21 12:09 80 100 07/14/21 12:04 77 99 07/14/21 11:59 82 99 07/14/21 11:54 74 98 07/14/21 11:49 76 98 07/14/21 11:44 85 100 07/14/21 11:39 73 98 07/14/21 11:34 81 121/65 99 07/14/21 11:29 81 99 07/14/21 11:24 85 100 07/14/21 11:19 83 99 07/14/21 11:14 81 99 07/14/21 11:09 84 98 07/14/21 11:04 81 99 07/14/21 10:59 83 99 07/14/21 10:54 85 98 07/14/21 10:49 90 99 07/14/21 10:44 87 100 07/14/21 10:39 89 99 07/14/21 10:34 96 H 99 07/14/21 10:29 82 99 07/14/21 10:24 84 99 07/14/21 10:19 85 99 07/14/21 10:14 81 99 07/14/21 10:09 90 99 07/14/21 10:04 83 99 07/14/21 09:59 79 98 07/14/21 09:54 84 99 07/14/21 09:49 87 98 07/14/21 09:41 84 98 07/14/21 09:38 98.4 F 79 16 131/82 99 07/14/21 09:36 96 H 99 07/14/21 09:34 87 131/82 07/14/21 09:31 87 99 Intake and Output 07/14/21 07/14/21 07/15/21 15:59 23:59 07:59 Intake Total 1700 240 Output Total 50 500 300 Balance 1650 -500 -60 Intake: IV 1700 Lactated Ringers 1,000 ml 1000 @ 2250 mls/hr IV PREOP [facility] Rx#:[id number] Oral 240 Output: Urine 50 500 300 Indwelling Catheter 500 300 Other: Total, Intake Amount 240 Total, Output Amount 500 300 Weight 131.542 kg - Exam Breasts: Present: deferred Cardiovascular: Present: Regular rate Lungs: Present: Clear to auscultation Abdomen: Present: normal appearance, soft, normal bowel sounds Uterus: Present: fundal height below umbilicus Extremities: Present: normal Deep Tendon Reflex Grade: Normal +2 Incision: Present: normal, dry, intact - Labs Labs: Abnormal lab results 07/14/21 Range/Units 09:45 MCH 26 L (28-32) pg Seg Neutrophils % 71.2 H (40.0-70.0) %
[2021-07-15] MEDS: HYDROcodone/ACETAMINOPHEN 5-325 MG TAB PO PRN (11:35)
--- NOTE | 2021-07-15 11:57 | Post Anesthesia Evaluation ---
- Post Anesthesia Evaluation Patient Participated: Yes Airway Patent: Yes Stable Respiratory Function: Yes Nausea/Vomiting: No Temp > 96.8F: Yes Pain Manageable: Yes Adequeate Hydration: Yes Anesthesia Complications: No Block Receding Appropriately: Yes
[2021-07-15] MEDS: IBUPROFEN 800 MG TAB PO PRN (17:14)
[2021-07-16] MEDS: HYDROcodone/ACETAMINOPHEN 5-325 MG TAB PO PRN (05:30)
--- NOTE | 2021-07-16 08:36 | Progress Note ---
Assessment and Plan POD#2 C/S and BTL doing fair 1. Will repeat CBC this am with pt report and wound dressing 2. Pt to get 2hrgtt at 6wks 3. Routine post op care All questions encouraged and answered Subjective Date of service: 07/16/21 Principal diagnosis: POD#2 repeat C/S and BTL Interval history: Pt c/o right sided pain severe yesterday with dollar size clots and today smaller clots but they are still present. Denies dizziness, SOB or chest pain. pt has passed flatus but no BM and she desires to have BM prior to discharge. Pt states she has PCOS and pre-diabetes and hgb A1c per Kristie GRIFFITHSW was 6. Pt voiding without difficulty. Pain controlled with medsd. Pt is breast pumping still hoping for better latching attempt with baby today. Objective - Constitutional Vitals: Vital Signs - 12hr 07/15/21 07/15/21 07/16/21 22:19 23:51 08:00 Temperature 98.1 F Pulse Rate 86 Respiratory 18 Rate Blood Pressure 115/66 O2 Sat by Pulse 98 Oximetry O2 Sat by Pulse 100 98 Oximetry [ Bilateral Throughout] General appearance: Present: no acute distress - Neck Neck: normal ROM - Respiratory Respiratory effort: normal - Breasts Breasts: deferred - Cardiovascular Rhythm: regular Extremities: Full ROM - Gastrointestinal General gastrointestinal: Present: soft (obese), other (Dressing removed and rig ht side moist with [place] fluid on the gauze, no active drainage; steristrips in place) - Genitourinary Female genitourinary: other (Fundus with mild tenderness, 1cm above umbilicus and lochia moderate) - Neurologic Neurologic: moves all extremities - Psychiatric Psychiatric: cooperative - Labs CBC & Chem 7: 07/15/21 02:24 Medications & Allergies - Medications Allergies/Adverse Reactions: Allergies No Known Allergies Allergy (Verified 07/14/21 09:20) Home Medications: Home Medications Medication Instructions Recorded Confirmed Last Taken Type Insulin NPH Human Isophane 100 unit SQ QAMDIAB 02/25/17 07/15/21 07/12/21 H istory [HumuLIN N] Insulin Regular, Human [HumuLIN R] 1,000 unit SQ BIDBRS 02/25/17 07/15/21 07/12/21 History Vit-Fe Fumar-FA [ 1 tab PO QDAY 02/25/17 07/15/21 07/12/21 Hist ory Vitamin] Ibuprofen [Motrin] 600 mg PO Q8H PRN #30 tablet 10/14/19 07/15/21 Unknown Rx oxyCODONE /ACETAMINOPHEN [Percocet 1 tab PO Q6HR PRN #20 tablet 10/14/19 07/15/21 Unknown Rx 5/325] Ibuprofen [Motrin] 600 mg PO Q8H PRN #60 tablet 07/15/21 Unknown Rx oxyCODONE /ACETAMINOPHEN [Percocet 1 tab PO Q6HR PRN #20 tablet 07/15/21 Unknown Rx 5/325] Active Medications: Generic Name Dose Route Start Last Admin Trade Name Freq PRN Reason Stop Dose Admin Acetaminophen 650 mg 07/14/21 11:00 Acetaminophen 325 Mg Tab PO Q4H PRN Pain, Mild (1-3) Hydrocodone Bitart/Acetaminophen 1 each 07/14/21 14:35 07/16/21 05:30 Hydrocodone/Acetaminophen 5-325 Mg Tab PO 1 each Q6H PRN Administration Pain, Moderate (4-6) Butorphanol Tartrate 2 mg 07/14/21 11:00 Butorphanol 2 Mg/1 Ml Inj IV Q2H PRN Pain , Severe (7-10) Carboprost Tromethamine 250 mcg 07/14/21 11:00 Carboprost Tromethamine 250 Mcg/1 Ml Inj IM ONCE PRN Uterine Bleeding Ephedrine Sulfate 10 mg 07/14/21 11:00 Ephedrine Sulfate 50 Mg/1 Ml Inj IV Q2M PRN Hypotension Fentanyl 100 mcg 07/14/21 11:00 Fentanyl 100 Mcg/2 Ml Inj IV Q2H PRN Pain,Severe (7-10) LABOR PAIN Oxytocin/Sodium Chloride 30 units in 500 mls @ 0 mls/hr 07/14/21 10:00 Pitocin/Ns 30 Unit/500ml IV TITR KYLE Protocol As Directed Lactated Ringer's 1,000 mls @ 125 mls/hr 07/14/21 11:00 07/14/21 19:53 Lactated Ringers IV 125 mls/hr DIRECT KYLE Administration Ibuprofen 600 mg 07/14/21 14:35 07/16/21 05:29 Ibuprofen 600 Mg Tab PO 600 mg Q6H PRN Administration Pain, Mild (1-3) Ibuprofen 800 mg 07/14/21 14:35 07/15/21 17:14 Ibuprofen 800 Mg Tab PO 800 mg Q6H PRN Administration Pain, Moderate (4-6) Ketorolac Tromethamine 30 mg 07/14/21 14:35 07/14/21 19:53 Ketorolac 30 Mg/1 Ml Inj IV 07/19/21 14:34 30 mg Q6H PRN Administration Pain, Moderate (4-6) Loperamide HCl 2 mg 07/14/21 11:00 Loperamide 2 Mg Cap PO ONCE PRN give with Hemabate Methylergonovine Maleate 0.2 mg 07/14/21 11:00 Methylergonovine Maleate 0.2 Mg/Ml Vial IM ONCE PRN Uterine Bleeding Mineral Oil 30 ml 07/14/21 11:00 Mineral Oil 30 Ml Oral Liqd PO QHS PRN Constipation Misoprostol 800 mcg 07/14/21 11:00 Misoprostol 200 Mcg Tab PA ONCE PRN Uterine Bleeding Morphine Sulfate 2 mg 07/14/21 14:35 Morphine 2 Mg/1 Ml Inj IV Q4H PRN Pain, Moderate (4-6) Morphine Sulfate 4 mg 07/14/21 14:35 07/15/21 01:42 Morphine 4 Mg/1 Ml Inj IV 4 mg Q4H PRN Administration Pain , Severe (7-10) Multi-Ingredient Ointment 1 applic 07/14/21 14:35 Lanolin/Zinc/Dimethicone (Lansinoh) 7 Gm TP PRN PRN dryness/cracking Nalbuphine HCl 10 mg 07/14/21 11:00 Nalbuphine 10 Mg/1 Ml Inj IV Q2H PRN Pain, Moderate (4-6) Naloxone HCl 0.1 mg 07/14/21 14:35 Naloxone 0.4 Mg/1 Ml Inj IV Q2MIN PRN Res Rate </= 8 or 02 SAT < 92% Oxytocin 10 unit 07/14/21 11:00 Oxytocin 10 Unit/1 Ml Inj IM ONCE PRN Uterine Bleeding Sodium Chloride 10 ml 07/14/21 15:00 Sodium Chloride 0.9% 10 Ml Flush Syringe IV PRN KYLE Witch Roselia/Glycerin 1 each 07/14/21 14:35 Witch Roselia/ Glycerin Pad TP PRN PRN Hemorrhoids/cleansing/soothing
[2021-07-16 10:15] LABS: Basophils % (Auto) 0.5 % (0.0-1.8); Eosinophils % (Auto) 0.2 % (0.0-4.3); Hematocrit 33.7 % (30.3-42.9); Hemoglobin 10.7 gm/dl (10.1-14.3); Lymphocytes % (Auto) 20.9 % (13.4-35.0); Mean Corpuscular HGB Conc 32 % (30-34); Mean Corpuscular Volume 82 fl (79-97); Monocytes # (Auto) 0.6 K/mm3 (0.0-0.8); Monocytes % (Auto) 6.5 % (0.0-7.3); Platelet Count 271 K/mm3 (140-440); Red Blood Count 4.14 M/mm3 (3.65-5.03); Red Cell Distribution Width 14.9 % (13.2-15.2)
[2021-07-16] MEDS: IBUPROFEN 800 MG TAB PO PRN ×2 (11:21→17:54)
--- NOTE | 2021-07-17 08:49 | Progress Note ---
Assessment and Plan POD#3 C/S and BTL; Gest DM with diet controlled blood sugars 1. Discharge pt home and pt to make appt for wound check in 1wk Subjective Date of service: 07/17/21 Principal diagnosis: POD#3 repeat C/S and BTL Interval history: pt has no complaints and states she had a BM and ready to go home. denies dysuria and pain controlled with meds. pt tolerates diet well. Objective - Constitutional Vitals: Vital Signs - 12hr 07/16/21 07/16/21 07/17/21 21:41 23:33 00:36 Temperature 98.5 F Pulse Rate 88 Respiratory 18 Rate Blood Pressure 115/77 O2 Sat by Pulse 98 Oximetry O2 Sat by Pulse 97 98 Oximetry [ Bilateral Throughout] 07/17/21 07/17/21 07/17/21 02:00 03:30 06:02 Temperature Pulse Rate Respiratory Rate Blood Pressure O2 Sat by Pulse Oximetry O2 Sat by Pulse 98 98 98 Oximetry [ Bilateral Throughout] 07/17/21 07/17/21 07:36 07:42 Temperature 98.0 F Pulse Rate 85 Respiratory 18 Rate Blood Pressure 122/77 O2 Sat by Pulse 100 Oximetry O2 Sat by Pulse 98 Oximetry [ Bilateral Throughout] General appearance: Present: no acute distress - Neck Neck: normal ROM - Respiratory Respiratory effort: normal - Cardiovascular Rhythm: regular Extremities: No edema - Gastrointestinal General gastrointestinal: Present: soft (obese), non-tender, other (Incision now dry with steristrips without drainage or warmth) - Genitourinary Female genitourinary: other (lochia normal. Fundus firm 2cm below the umbilicus and non-tender) - Neurologic Neurologic: moves all extremities - Psychiatric Psychiatric: appropriate mood/affect - Labs CBC & Chem 7: 07/16/21 09:54 Labs: Abnormal lab results 07/16/21 Range/Units 09:54 MCH 26 L (28-32) pg Seg Neutrophils % 71.9 H (40.0-70.0) % Medications & Allergies - Medications Allergies/Adverse Reactions: Allergies No Known Allergies Allergy (Verified 07/14/21 09:20) Home Medications: Home Medications Medication Instructions Recorded Confirmed Last Taken Type Insulin NPH Human Isophane 100 unit SQ QAMDIAB 02/25/17 07/15/21 07/12/21 History [HumuLIN N] Insulin Regular, Human [HumuLIN R] 1,000 unit SQ BIDBRS 02/25/17 07/15/21 07/12/21 History Vit-Fe Fumar-FA [ 1 tab PO QDAY 02/25/17 07/15/21 07/12/21 History Vitamin] Ibuprofen [Motrin] 600 mg PO Q8H PRN #30 tablet 10/14/19 07/15/21 Unknown Rx oxyCODONE /ACETAMINOPHEN [Percocet 1 tab PO Q6HR PRN #20 tablet 10/14/19 07/15/21 Unknown Rx 5/325] Ibuprofen [Motrin] 600 mg PO Q8H PRN #60 tablet 07/15/21 Unknown Rx oxyCODONE /ACETAMINOPHEN [Percocet 1 tab PO Q6HR PRN #20 tablet 07/15/21 Unknown Rx 5/325] Active Medications: Generic Name Dose Route Start Last Admin Trade Name Freq PRN Reason Stop Dose Admin Acetaminophen 650 mg 07/14/21 11:00 Acetaminophen 325 Mg Tab PO Q4H PRN Pain, Mild (1-3) Hydrocodone Bitart/Acetaminophen 1 each 07/14/21 14:35 07/16/21 05:30 Hydrocodone/Acetaminophen 5-325 Mg Tab PO 1 each Q6H PRN Administration Pain, Moderate (4-6) Butorphanol Tartrate 2 mg 07/14/21 11:00 Butorphanol 2 Mg/1 Ml Inj IV Q2H PRN Pain , Severe (7-10) Carboprost Tromethamine 250 mcg 07/14/21 11:00 Carboprost Tromethamine 250 Mcg/1 Ml Inj IM ONCE PRN Uterine Bleeding Ephedrine Sulfate 10 mg 07/14/21 11:00 Ephedrine Sulfate 50 Mg/1 Ml Inj IV Q2M PRN Hypotension Fentanyl 100 mcg 07/14/21 11:00 Fentanyl 100 Mcg/2 Ml Inj IV Q2H PRN Pain,Severe (7-10) LABOR PAIN Oxytocin/Sodium Chloride 30 units in 500 mls @ 0 mls/hr 07/14/21 10:00 Pitocin/Ns 30 Unit/500ml IV TITR KYLE Protocol As Directed Lactated Ringer's 1,000 mls @ 125 mls/hr 07/14/21 11:00 07/14/21 19:53 Lactated Ringers IV 125 mls/hr DIRECT KYLE Administration Ibuprofen 600 mg 07/14/21 14:35 07/16/21 05:29 Ibuprofen 600 Mg Tab PO 600 mg Q6H PRN Administration Pain, Mild (1-3) Ibuprofen 800 mg 07/14/21 14:35 07/16/21 17:54 Ibuprofen 800 Mg Tab PO 800 mg Q6H PRN Administration Pain, Moderate (4-6) Ketorolac Tromethamine 30 mg 07/14/21 14:35 07/14/21 19:53 Ketorolac 30 Mg/1 Ml Inj IV 07/19/21 14:34 30 mg Q6H PRN Administration Pain, Moderate (4-6) Loperamide HCl 2 mg 07/14/21 11:00 Loperamide 2 Mg Cap PO ONCE PRN give with Hemabate Methylergonovine Maleate 0.2 mg 07/14/21 11:00 Methylergonovine Maleate 0.2 Mg/Ml Vial IM ONCE PRN Uterine Bleeding Mineral Oil 30 ml 07/14/21 11:00 Mineral Oil 30 Ml Oral Liqd PO QHS PRN Constipation Misoprostol 800 mcg 07/14/21 11:00 Misoprostol 200 Mcg Tab ND ONCE PRN Uterine Bleeding Morphine Sulfate 2 mg 07/14/21 14:35 Morphine 2 Mg/1 Ml Inj IV Q4H PRN Pain, Moderate (4-6) Morphine Sulfate 4 mg 07/14/21 14:35 07/15/21 01:42 Morphine 4 Mg/1 Ml Inj IV 4 mg Q4H PRN Administration Pain , Severe (7-10) Multi-Ingredient Ointment 1 applic 07/14/21 14:35 Lanolin/Zinc/Dimethicone (Lansinoh) 7 Gm TP PRN PRN dryness/cracking Nalbuphine HCl 10 mg 07/14/21 11:00 Nalbuphine 10 Mg/1 Ml Inj IV Q2H PRN Pain, Moderate (4-6) Naloxone HCl 0.1 mg 07/14/21 14:35 Naloxone 0.4 Mg/1 Ml Inj IV Q2MIN PRN Res Rate </= 8 or 02 SAT < 92% Oxytocin 10 unit 07/14/21 11:00 Oxytocin 10 Unit/1 Ml Inj IM ONCE PRN Uterine Bleeding Sodium Chloride 10 ml 07/14/21 15:00 Sodium Chloride 0.9% 10 Ml Flush Syringe IV PRN [facility] Cristal Roselia/Glycerin 1 each 07/14/21 14:35 Witch Roselia/ Glycerin Pad TP PRN PRN Hemorrhoids/cleansing/soothing
--- NOTE | 2021-07-17 08:55 | Discharge Summary ---
Providers - Providers Date of Admission: 07/14/21 09:04 Date of discharge: 07/17/21 Attending physician: TONYA BETHEA MD Primary care physician: [employer] Hospitalization Reason for admission: section (and sterilization desired), IUP at term Delivery: Procedure: section, bilateral tubal ligation Episiotomy: none Laceration: none Incision: normal Other procedures: tubal ligation complications: none Discharge diagnosis: IUP at term delivered baby: female Hospital course: Pt admitted and had uncomplicated scheduled c/s and bilateral tubal sterilization. pt had gestational diabetes and glucose remained controlled during hospitalization. Pt had uneventful course and was discharged home on post op day#3. Hgb 10.7 on discharge and pt asymptomatic. Condition at discharge: Good Disposition: 01 HOME / SELF CARE / HOMELESS - Discharge Diagnoses (1) S/P repeat low transverse Status: Acute (2) Encounter for tubal ligation Status: Acute Plan - Discharge Medications Prescriptions: Ibuprofen [Motrin] 600 mg PO Q8H PRN #60 tablet PRN Reason: Pain oxyCODONE /ACETAMINOPHEN [Percocet 5/325] 1 tab PO Q6HR PRN #20 tablet PRN Reason: Pain - Provider Discharge Summary Additional instructions: [] Smoking cessation referral if applicable(refer to patient education folder for contact #) [] Refer to [facility]'s [facility] Booklet Call your doctor immediately for: * Fever > 100.5 * Heavy vaginal bleeding ( >1 pad per hour) * Severe persistent headache * Shortness of breath * Reddened, hot, painful area to leg or breast * Drainage or odor from incision. * Keep incision clean and dry at all times and follow doctor's instructions regarding bathing/showering - Follow up plan Follow up: PRIMARY CARE, [Primary Care Provider] - 7 Days Forms: [facility] Discharge Summary
[2021-07-17] MEDS: IBUPROFEN 800 MG TAB PO PRN (11:45)
[2021-07-17 12:20] VITALS: BP 117/75
== END 2021-07-17 12:30 | disposition home or self-care (01) | DRG 785 ==
LOC: APU 09:04 → OB 17:26
PROVIDERS: ADMIT Obstetrics & Gynecology; ATTEND Obstetrics & Gynecology
PROC: 10D00Z1 Extraction of Products of Conception, Low, Open Approach (ICD-10-PCS; principal; 2021-07-14)
PROC: 0UB70ZZ Excision of Bilateral Fallopian Tubes, Open Approach (ICD-10-PCS; 2021-07-14)
PROC: 3E0234Z Introduction of Serum, Toxoid and Vaccine into Muscle, Percutaneous Approach (ICD-10-PCS; 2021-07-15)
PROC: 3E0234Z Introduction of Serum, Toxoid and Vaccine into Muscle, Percutaneous Approach (ICD-10-PCS; 2021-07-15)
DX: O24.429 Gestational diabetes mellitus in childbirth, unspecified control (principal); O36.63X0 Maternal care for excessive fetal growth, third trimester, not applicable or unspecified; O34.211 Maternal care for low transverse scar from previous cesarean delivery; Z20.822 Contact with and (suspected) exposure to COVID-19; Z23 Encounter for immunization; Z37.0 Single live birth; Z3A.38 38 weeks gestation of pregnancy; Z30.2 Encounter for sterilization
CPT/HCPCS: 36415; 59025; 82962; 85014; 85018; 85025; 85461; 86592; 86850; 86900; 86901; 88302; 90471; 90715; 96360; G0378; J3490; J7121; J0690; J1100; J1885; J2270; J2405; J2765; J2790; J7120; U0003